=== PATIENT | male | born 1945 | race Caucasian/White ===

== ENCOUNTER → 2019-03-19 | Outpatient (CLI) | payer OTHER ==
[~2019-03-19] MED LIST: ACTOS 30 MG TAB30 MG PO; ASA5UEC; AZOR 5-40 MG T1 EACH PO; BYSTOLIC10 MG PO; CARAFATE 1 GM TA1 G1 GT; CO Q-10100 MG PO; EFFIENT10 MG PO; FISHOIL; GLUCOPHAGE500 MG PO; LANTUS SQ; MULTIVITAMINS; ZOCOR 10 MG TAB10 MG PO
== END ==
LOC: SJCVCIMAG 10:04
DX: I65.23 Occlusion and stenosis of bilateral carotid arteries (principal); E78.5 Hyperlipidemia, unspecified; I25.10 Atherosclerotic heart disease of native coronary artery without angina pectoris; I10 Essential (primary) hypertension

== ENCOUNTER → 2019-10-29 | Outpatient (CLI) | payer OTHER | LOC: SJCVC 13:18 | PROVIDERS: ATTEND Internal Medicine Cardiovascular Disease | DX: R94.31 Abnormal electrocardiogram [ECG] [EKG] (principal); I25.10 Atherosclerotic heart disease of native coronary artery without angina pectoris; I10 Essential (primary) hypertension; E78.00 Pure hypercholesterolemia, unspecified; E11.51 Type 2 diabetes mellitus with diabetic peripheral angiopathy without gangrene ==

== ENCOUNTER → 2021-03-11 | Outpatient (CLI) | payer OTHER | LOC: SJCVCIMAG 10:26 | PROVIDERS: ATTEND Internal Medicine Cardiovascular Disease | DX: Z01.810 Encounter for preprocedural cardiovascular examination (principal); I25.10 Atherosclerotic heart disease of native coronary artery without angina pectoris; I10 Essential (primary) hypertension; E78.00 Pure hypercholesterolemia, unspecified; E11.9 Type 2 diabetes mellitus without complications; E78.5 Hyperlipidemia, unspecified; Z72.89 Other problems related to lifestyle; Z79.84 Long term (current) use of oral hypoglycemic drugs; Z79.899 Other long term (current) drug therapy; Z88.8 Allergy status to other drugs, medicaments and biological substances; Z79.4 Long term (current) use of insulin; Z91.013 Allergy to seafood; Z86.16 Personal history of COVID-19; Z79.82 Long term (current) use of aspirin ==